=== PATIENT | male | born 1975 | race Caucasian/White ===

== ENCOUNTER 2020-01-20 21:12 | Inpatient (IN) | payer BC ==
[~2020-01-20] VITALS: Ht 177.8 cm; Wt 145.2 kg
[2020-01-20 21:53] VITALS: BP 106/67
[2020-01-20] MEDS ORDERED: OZEMPIC0.25 MG/0. SUBQ (22:03)
[2020-01-20] MEDS ORDERED: METFORMIN HCL500 M3 PO (22:05)
[2020-01-20] MEDS ORDERED: LIPITOR40 MG PO (22:06)
[2020-01-20] MEDS ORDERED: ZESTRIL20 MG PO (22:06)
[2020-01-20] MEDS ORDERED: CARVEDILOL12.5 MG PO (22:07)
[2020-01-20] MEDS ORDERED: PROZAC40 MG PO (22:07)
[2020-01-20] MEDS ORDERED: JARDIANCE25 MG PO (22:08)
[2020-01-20 22:13] LABS: ABSOLUTE LYMPHOCYTES 0.5 thou/uL (0.8-5.3); ABSOLUTE MONOCYTES 0.2 thou/uL (0.0-1.2); BASOPHILS 0.8 %; HEMATOCRIT 49.8 % (42.0-52.0); HEMOGLOBIN 17.5 gm/dL (14.0-18.0); LYMPHOCYTES 18.9 %; MCH 33.6 pg (26.0-34.0); MCHC 35.2 g/dL (28.0-37.0); MCV 95.3 fL (80.0-100.0); MONOCYTES 6.7 %; MPV 8.2 fl. (7.2-11.1); NUCLEATED RBCS 0 /100WBC; PLATELET COUNT* 76 thou/uL (150-400); POLYS 73.6 %; RBC 5.22 mil/uL (4.50-6.00); RDW-CV 13.7 % (10.5-14.5); WBC 2.8 thou/uL (4.0-11.0)
[2020-01-20 22:21] LABS: CALCIUM 8.5 mg/dL (8.5-10.1); CREATININE 1.3 mg/dL (0.6-1.3)
[2020-01-20 22:22] LABS: POTASSIUM 4.3 mmol/L (3.5-5.1)
[2020-01-20 22:25] LABS: ALBUMIN 3.5 g/dL (3.4-5.0); TOTAL BILIRUBIN 0.4 mg/dL (<0.1-1.0); TOTAL PROTEIN 7.4 g/dL (6.4-8.2)
[2020-01-21 00:49] VITALS: BP 105/60
[2020-01-21 04:00] VITALS: BP 112/65
[2020-01-21 08:00] VITALS: BP 126/68
--- NOTE | 2020-01-21 10:33 | EKG ---
[place] [address] ELECTROCARDIOGRAM REPORT Name: MELISSA ZHENG Room: [address] [place] .R.#: [id number] Admission: 01/20/20 Attend Phys: Prisca Sanchez, Discharge: Date of : 71 Date of Service: 01/20/20 221 Report #: [id number] THIS REPORT FOR: //name// [facility] ED Test Date: 2020-01-20 Test Time: 22:12:31 Pat Name: MELISSA ZHENG Department: Room: [facility] Gender: M [employer]: MR : [id number] Requested By: Alex Contreras Order Number: [id number] MD: Nikhil Bernard Measurements Intervals [place] Rate: 94 P: 43 NE: 159 QRS: -47 QRSD: 95 T: 35 QT: 345 QTc: 432 Interpretive Statements Sinus rhythm LAD, consider left anterior fascicular block Borderline low voltage, extremity leads Anteroseptal infarct, old Baseline wander in lead(s) V6 No previous ECG available for comparison Electronically Signed On 01-21-2020 10:33:18 CDT by Nikhil Bernard [email or web address] <ELECTRONICALLY SIGNED> By: Nikhil Bernard MD, FAC 01/21/20 1033 11 221 Nikhil Bernard MD, FAC /EPI
[2020-01-21 11:47] LABS: APTT 34.7 Seconds (25.0-31.3); PROTIME 10.5 Seconds (9.20-11.50)
[2020-01-21 11:49] LABS: CALCIUM 7.8 mg/dL (8.5-10.1); CREATININE 1.1 mg/dL (0.6-1.3); MAGNESIUM 1.7 mg/dL (1.8-2.4); POTASSIUM 3.8 mmol/L (3.5-5.1)
[2020-01-21 13:15] VITALS: BP 116/56
[2020-01-21 17:33] VITALS: BP 123/70
[2020-01-21 20:00] VITALS: BP 135/68
[2020-01-22] VITALS: BP 113/62
[2020-01-22 04:00] VITALS: BP 121/71
[2020-01-22 05:21] LABS: HEMATOCRIT 44.6 % (42.0-52.0); MCH 33.1 pg (26.0-34.0); MCHC 34.7 g/dL (28.0-37.0); MCV 95.3 fL (80.0-100.0); RBC 4.68 mil/uL (4.50-6.00); RDW-CV 13.9 % (10.5-14.5); WBC 2.8 thou/uL (4.0-11.0)
[2020-01-22 05:33] LABS: HEMOGLOBIN 15.5 gm/dL (14.0-18.0)
[2020-01-22 05:47] LABS: ALBUMIN 2.7 g/dL (3.4-5.0); CALCIUM 7.8 mg/dL (8.5-10.1); CREATININE 0.9 mg/dL (0.6-1.3); MAGNESIUM 1.9 mg/dL (1.8-2.4); POTASSIUM 3.7 mmol/L (3.5-5.1); TOTAL BILIRUBIN 0.2 mg/dL (<0.1-1.0)
[2020-01-22 09:00] VITALS: BP 102/65
[2020-01-22 12:32] LABS: URINE BILIRUBIN NEGATIVE (Negative); URINE BLOOD 1+ (Negative); URINE CLARITY CLEAR; URINE COLOR YELLOW; URINE GLUCOSE-RANDOM 2+ (Negative); URINE KETONES 1+ (Negative); URINE LEUKOCYTES-REFLEX NEGATIVE (Negative); URINE NITRITE-REFLEX NEGATIVE (Negative); URINE PROTEIN 2+ (Negative); URINE SPECIFIC GRAVITY >= 1.030 (1.005-1.030); URINE UROBILINOGEN 0.2 E.U./dl (0.2-1.0)
[2020-01-22 12:44] LABS: MUCUS 4-6 Moderate strn/LPF (None Seen)
[2020-01-22 12:45] LABS: COARSE GRANULAR CASTS 4-10 Moderate /LPF (None Seen); FINE GRANULAR CASTS 4-10 Moderate /LPF (None Seen); HYALINE CASTS 0-3 Few /LPF (None Seen)
[2020-01-22 12:46] LABS: CRYSTALS None Seen /LPF (None Seen); SQUAMOUS 0-3 Few /LPF (0-3)
[2020-01-22 12:47] LABS: URINE RBC 0-2 Rare /HPF (0-2); URINE WBC-REFLEX 0-5 Rare /HPF (0-5)
[2020-01-22 12:48] LABS: BACTERIA-REFLEX None Seen /HPF (None Seen)
[2020-01-22 13:20] VITALS: BP 146/90
[2020-01-22 17:10] VITALS: BP 123/77
== END 2020-01-22 18:25 | disposition short-term general hospital (02) | DRG 871 ==
LOC: M.ERS 21:12 → M.2W 23:36 → M.TBA-ER 23:36 → M.2W 01-21 00:13
PROVIDERS: Emergency Medicine Emergency Medical Services; Internal Medicine; ADMIT Internal Medicine; ATTEND Internal Medicine
DX: A41.89 Other specified sepsis (principal); N17.0 Acute kidney failure with tubular necrosis; J96.01 Acute respiratory failure with hypoxia; E87.1 Hypo-osmolality and hyponatremia; Z68.42 Body mass index [BMI] 45.0-49.9, adult; K52.9 Noninfective gastroenteritis and colitis, unspecified; E11.9 Type 2 diabetes mellitus without complications; E66.01 Morbid (severe) obesity due to excess calories; E78.00 Pure hypercholesterolemia, unspecified; F32.9 Major depressive disorder, single episode, unspecified; E86.9 Volume depletion, unspecified; Z20.828 Contact with and (suspected) exposure to other viral communicable diseases; Z79.899 Other long term (current) drug therapy